=== PATIENT | female | born 1995 | race Caucasian/White ===

== ENCOUNTER 2018-07-22 02:18 | Inpatient (IN) ==
[2018-07-22] MEDS ORDERED: LORazepam 2 MG/4 ML VIAL IV PRN (02:30)
[2018-07-22] MEDS ORDERED: SODIUM CHLORIDE 0.9% 1000ML 1,000 ML IV SCH (02:30)
[2018-07-22 02:50] LABS: Basophils # (auto) 0.02 K/uL (0-0.2); Basophils % (auto) 0.2 %; Eosinophils # (auto) 0.06 K/uL (0-0.5); Eosinophils % (auto) 0.5 %; Hematocrit (blood only) 38.5 % (37-47); Hemoglobin 13.3 g/dL (12.0-16.0); Immature Granulocytes # (auto) 0.03 K/uL (0.00-0.02); Immature Granulocytes % (auto) 0.2 %; Lymphocytes # (auto) 1.43 K/uL (1.2-3.4); Lymphocytes % (auto) 11.6 %; Mean Corpuscular Hgb Conc 34.5 g/dL (32-36); Mean Corpuscular Volume 90.6 fL (80-100); Mean Platelet Volume 10.3 fL (7.4-10.4); Monocytes # (auto) 0.47 K/uL (0.11-0.59); Monocytes % (auto) 3.8 %; Neutrophils # (auto) 10.36 K/uL (1.4-6.5); Neutrophils % (auto) 83.7 %; Platelet Count 207 K/uL (130-400); RDW Standard Deviation 39.5 fL (36.4-46.3); Red Blood Count 4.25 M/uL (4.2-5.4); White Blood Count 12.37 K/uL (4.8-10.8)
[2018-07-22 03:08] LABS: Albumin Level 3.7 gm/dl (3.4-5.0); BUN Creatinine Ratio 10.8 (10-20); Calcium 8.3 mg/dl (8.5-10.1); Creatinine Clr Calc Pharmacy 76.8 ml/min; Est GFR (African American) 98.5; Potassium 3.5 mmol/L (3.5-5.1)
[2018-07-22 03:10] LABS: Albumin Globulin Ratio 1.1 (0.9-2); Bilirubin,Total 1.4 mg/dl (0.2-1); Globulin 3.5 gm/dl (2.5-4.0); Total Protein 7.2 gm/dl (6.4-8.2)
[2018-07-22 03:45] LABS: Lyme Ab IgG w/WB Rflx Negative (Negative); Lyme Ab IgM w/WB Rflx Negative (Negative)
--- NOTE | 2018-07-22 04:20 | History & Physical Report ---
Date of Service July 22, 2018 Assessment & Plan (1) New onset seizure: 2 episodes in the last 24 hours hx migraine, episode frequency/intensity at baseline as per patient family Medical Seizure precautions Keppra for prophylaxis Ativan as needed EEG, MRI brain, Neurology consult RE new onset seizures DVT prophylaxis. SCDs Full code Patient's boyfriend requesting updates from providers. Mr. Ilia Victoria, contact #[phone]. History of Present Illness Chief Complaint: Recurrent seizures Primary Care Provider: Angie Lane MD History obtained from patient, family, and records. Limited history from patient secondary to obtunded state. Medical history significant for migraine. Yesterday, patient's boyfriend roused from sleep with patient noted to have seizure-like activity described as generalized arm shaking with gurgling noises. Episode lasted about a minute as per patient boyfriend. No incontinence. No previous episodes. Patient somewhat confused for about 20 minutes after episode. Usual monthly frequency of migraine attacks as per patient boyfriend. No unusual stress except with ongoing moved to new home. No sleep deprivation as per patient's boyfriend. Patient seen at the ER yesterday. ER workup unremarkable. Patient sent home with outpatient Neurology referral. Last night, patient noted to have recurrence of episode again during sleep as per boyfriend. Tongue biting noted. EMS alerted. Patient received IV Keppra and Ativan at the ER. Patient currently obtunded. Medical History as above Surgical History : Knee surgery Family History : Breast cancer, colon cancer Personal/Social history : Non-smoker, occasional EtOH intake, [employer] employee Allergies Allergy/AdvReac Type Severity Reaction Status Date / Time No Known Allergies Allergy Verified 07/22/18 02:35 Home Medications Home Medications Medication Instructions Recorded Confirmed Type copper [ParaGard T 380A] 1 mm2 INTRAUTERINE CONTINOUS 07/21/18 07/22/18 History Past Med/Surg History Medical History No chronic diseases present Social History Preferred Language: Martiniquais Communication Ability: sedated Communication Ability Comment: iv ativan given in ed Package Checker Required: No Beliefs That Will Affect Care: None Current Living Situation: Significant Other Other Information That Helps Us Care for You: No Feels Safe at Home: Yes Smoking Status: Never smoker Hx Alcohol Use: No Hx Substance Use: Yes Review of Systems Could not be reliably obtained Physical Exam Vital Signs (Past 24 Hours): Last Vital Signs Temp 36.8 C 07/22/18 02:18 Pulse 92 H 07/22/18 04:01 Resp 22 07/22/18 04:01 BP 104/66 07/22/18 04:01 Pulse Ox 97 07/22/18 04:01 Physical Exam: GENERAL: Comfortable, obtunded, no respiratory distress SKIN: Normal color, warm HEENT: [place] palpebral conjunctivae, no ptosis, moist buccal mucosa, tongue contusion NECK : Supple, no tenderness CHEST : Decreased breath sounds , no tenderness HEART : RRR, no obvious murmurs ABDOMEN: Some distention, nontender EXTREMITIES : No LE swelling/tenderness, no other conspicuous deformities noted NEUROLOGIC : Obtunded, mid dilated pupils , no facial asymmetry, no other gross focality Results & Data Laboratory Results Laboratory Results WBC 12.37 K/uL (4.8-10.8) H 07/22/18 02:38 RBC 4.25 M/uL (4.2-5.4) 07/22/18 02:38 Hgb 13.3 g/dL (12.0-16.0) 07/22/18 02:38 Hct 38.5 % (37-47) 07/22/18 02:38 MCV 90.6 fL (80-100) 07/22/18 02:38 MCH 31.3 pg (25-34) 07/22/18 02:38 MCHC 34.5 g/dL (32-36) 07/22/18 02:38 RDW Std Deviation 39.5 fL (36.4-46.3) 07/22/18 02:38 RDW Coeff of Jorge L 12.0 % (11.5-14.5) 07/22/18 02:38 Plt Count 207 K/uL (130-400) 07/22/18 02:38 MPV 10.3 fL (7.4-10.4) 07/22/18 02:38 Immature Gran % (Auto) 0.2 % 07/22/18 02:38 Neut % (Auto) 83.7 % 07/22/18 02:38 Lymph % (Auto) 11.6 % 07/22/18 02:38 [place] % (Auto) 3.8 % 07/22/18 02:38 Eos % (Auto) 0.5 % 07/22/18 02:38 Baso % (Auto) 0.2 % 07/22/18 02:38 Immature Gran # (Auto) 0.03 K/uL (0.00-0.02) H 07/22/18 02:38 Neut # (Auto) 10.36 K/uL (1.4-6.5) H 07/22/18 02:38 Lymph # (Auto) 1.43 K/uL (1.2-3.4) 07/22/18 02:38 [place] # (Auto) 0.47 K/uL (0.11-0.59) 07/22/18 02:38 Eos # (Auto) 0.06 K/uL (0-0.5) 07/22/18 02:38 Baso # (Auto) 0.02 K/uL (0-0.2) 07/22/18 02:38 Sodium 139 mmol/L (136-145) 07/22/18 02:38 Potassium 3.5 mmol/L (3.5-5.1) 07/22/18 02:38 Chloride 107 mmol/L (98-107) 07/22/18 02:38 Carbon Dioxide 24 mmol/L (21-32) 07/22/18 02:38 Anion Gap 8.0 (3-11) 07/22/18 02:38 BUN 10 mg/dl (7-18) 07/22/18 02:38 Creatinine 0.95 mg/dl (0.6-1.2) 07/22/18 02:38 Est Cr Clr Drug Dosing 76.8 ml/min 07/22/18 02:38 Est GFR ( Amer) 98.5 07/22/18 02:38 Est GFR (Non-Af Amer) 85.0 07/22/18 02:38 BUN/Creatinine Ratio 10.8 (10-20) 07/22/18 02:38 Glucose 119 mg/dl (70-99) H 07/22/18 02:38 Calcium 8.3 mg/dl (8.5-10.1) L 07/22/18 02:38 Total Bilirubin 1.4 mg/dl (0.2-1) H 07/22/18 02:38 AST 14 U/L (15-37) L 07/22/18 02:38 ALT 18 U/L (12-78) 07/22/18 02:38 Alkaline Phosphatase 52 U/L (45-117) 07/22/18 02:38 Total Creatine Kinase 236 U/L (26-192) H 07/22/18 02:38 Total Protein 7.2 gm/dl (6.4-8.2) 07/22/18 02:38 Albumin 3.7 gm/dl (3.4-5.0) 07/22/18 02:38 Globulin 3.5 gm/dl (2.5-4.0) 07/22/18 02:38 Albumin/Globulin Ratio 1.1 (0.9-2) 07/22/18 02:38 Procalcitonin < 0.05 ng/ml (0-0.5) 07/22/18 02:38 TSH 3.980 uIu/ml (0.300-4.500) 07/22/18 02:38 Lyme Disease IgG Ab Negative (Negative) 07/22/18 02:38 Lyme Disease IgM Ab Negative (Negative) 07/22/18 02:38
[2018-07-22] MEDS ORDERED: [UNRECOGNIZED DRUG - OTHER] IU SCH (05:41)
[2018-07-22] MEDS ORDERED: CALCIUM GLUCONATE 10% 1,000 MG in SODIUM CHLORIDE 0.9% 50 ML IV STA (05:41)
[2018-07-22] MEDS ORDERED: LORazepam 1 MG/2 ML VIAL IV PRN (05:41)
[2018-07-22] MEDS ORDERED: ACETAMINOPHEN 325 MG TAB PO PRN (05:41)
[2018-07-22] MEDS ORDERED: NSS + 20MEQ KCL 20 MEQ/1,000 ML BAG IV ONE (05:41)
[2018-07-22] MEDS ORDERED: PROCHLORPERAZINE 5 MG in SYRINGE 4 ML IV PRN (05:41)
--- NOTE | 2018-07-22 06:44 | Emergency Department Note ---
History of Present Illness General Chief complaint: Seizure History of Present Illness This is a 22-year-old female presenting to the emergency department for evaluation of a seizure event that occurred less than 30 minutes prior to arrival. She is accompanied by her fianc� who witnessed the event. Evidently t he 2 of them were laying in bed together, sleeping. The fianc� was awoken when the patient began shaking uncontrollably. The fianc� attempted to awaken the patient, who was not responsive. The patient eventually stopped shaking after 911 arrived and evidently had a postictal period of 10-15 minutes. The patient did bite her tongue but did not draw blood. She is not having pain of her shoulders, arms, or legs. She did not defecate or urinate herself. The patient was seen less than 24 hours ago in this department for a new onset seizure. She did have blood work and CT scan at that time that was essentially normal. The patient drug of abuse screen was positive for marijuana, and she states that she did not smoke marijuana after being discharged yesterday. The patient does not recall the events of the seizure tonight, and does report being very tired. She has not had fever or chills. She denies chance of . She rates her current discomfort a 3/10. Home Medications Home Medications Medication Instructions Recorded Confirmed Type copper [ParaGard T 380A] 1 mm2 INTRAUTERINE CONTINOUS 07/21/18 07/22/18 History Allergies Allergy/AdvReac Type Severity Reaction Status Date / Time No Known Allergies Allergy Verified 07/22/18 02:35 Past Med/Surg History Medical History No chronic diseases present Social History Preferred Language: Zambian Communication Ability: sedated Communication Ability Comment: iv ativan given in ed Instructor Knitting Required: No Beliefs That Will Affect Care: None Current Living Situation: Significant Other Other Information That Helps Us Care for You: No Feels Safe at Home: Yes Smoking Status: Never smoker Hx Alcohol Use: No Hx Substance Use: Yes Review of Systems A total of 10 systems reviewed and were otherwise negative Physical Exam Vital Signs Vital Signs - 24 hr 07/22/18 02:18 07/22/18 02:21 07/22/18 03:01 Temperature 36.8 C Temperature Source Oral Sepsis Recent Fever Within 48 Hours No Sepsis New/Unexplained Change in Mental Status No Sepsis Action Taken by Nursing No Action Required Pulse Rate 84 89 92 H Pulse Rate [Brachial] Pulse Rate from SpO2 Sensor 83 94 H Respiratory Rate 20 15 19 Respiratory Effort / Characteristics Non-Labored Spontaneous Respiratory Depth Normal Respiratory Pattern Regular Blood Pressure 116/60 116/60 112/78 Blood Pressure [Left Arm] Blood Pressure Mean 78 78 89 Blood Pressure Mean [Left Arm] Blood Pressure Position Semi-fowlers Pulse Oximetry 93 94 99 Oxygen Delivery Method Room Air 07/22/18 04:01 07/22/18 04:31 07/22/18 05:01 Temperature Temperature Source Sepsis Recent Fever Within 48 Hours Sepsis New/Unexplained Change in Mental Status Sepsis Action Taken by Nursing Pulse Rate 92 H 84 85 Pulse Rate [Brachial] Pulse Rate from SpO2 Sensor 92 H 82 85 Respiratory Rate 22 23 21 Respiratory Effort / Characteristics Respiratory Depth Respiratory Pattern Blood Pressure 104/66 106/64 102/57 L Blood Pressure [Left Arm] Blood Pressure Mean 78 78 72 Blood Pressure Mean [Left Arm] Blood Pressure Position Pulse Oximetry 97 98 96 Oxygen Delivery Method Room Air 07/22/18 05:06 07/22/18 05:45 Temperature 36.9 C Temperature Source Oral Sepsis Recent Fever Within 48 Hours Sepsis New/Unexplained Change in Mental Status Sepsis Action Taken by Nursing Pulse Rate 85 Pulse Rate [Brachial] 96 H Pulse Rate from SpO2 Sensor Respiratory Rate 21 20 Respiratory Effort / Characteristics Respiratory Depth Respiratory Pattern Blood Pressure 102/57 L Blood Pressure [Left Arm] 101/64 Blood Pressure Mean Blood Pressure Mean [Left Arm] 76 Blood Pressure Position Pulse Oximetry 96 98 Oxygen Delivery Method Room Air Room Air VITALS: Vitals are noted on the nurse's note and reviewed by myself. Vital s igns stable. GENERAL: Well-developed, well-nourished, white female, who is in no acute distress and resting comfortably. Patient is cooperative with the examination. HEAD: Normocephalic atraumatic. EARS: External ear normal. External auditory canals clear, tympanic membranes pearly [place] without erythema or effusion bilaterally. EYES: Pupils equal round and reactive to light and accommodation. Conjunctivae without injection, sclerae without icterus. Extraocular movements intact. NOSE: Patent, turbinates without inflammation or discharge. MOUTH: Mucous membranes moist. Tonsils are not enlarged. Pharynx without erythema, blood, or exudate. Uvula midline. Airway patent. Bruising noted to the lateral aspects of the tongue without maceration or laceration. NECK: Supple without nuchal rigidity. No lymphadenopathy. No thyromegaly. Cervical spine is nontender. HEART: Regular rate and rhythm without murmurs gallops or rubs. LUNGS: Clear to auscultation bilaterally without wheezes, rales or rhonchi. No retractions or accessory muscle use. ABDOMEN: Positive normal bowel sounds x 4. Soft, nontender, without masses or organomegaly. No guarding or rebound tenderness. MUSCULOSKELETAL: No muscle atrophy, erythema, or edema noted. Full range of motion in all extremities. NEURO: Patient was alert and oriented to person place and time. CN II through XII grossly intact. No focal neurological deficits. GCS 15. SKIN: The skin was without rashes, erythema, edema, or bruising. Capillary refill less than 2 seconds. Course Administered Medications Discontinued Medications Lorazepam (Ativan) 2 mg in 4 mls @ 4 mls/min IV UD PRN PRN Reason: seizure Stop: 08/21/18 02:29 Last Admin: 07/22/18 02:46 Dose: 4 mls/min Documented by: [id number] Levetiracetam 1,000 mg/ (Dextrose) 110 mls @ 440 mls/hr IV NOW STA Stop: 07/22/18 02:47 Last Infusion: 07/22/18 03:11 Dose: 0 mls/hr Documented by: [id number] Admin: 07/22/18 02:46 Dose: 440 mls/hr Documented by: [id number] Sodium Chloride (Nss 1000ml) 1,000 mls @ 250 mls/hr IV .Q4H JEREMIAH Stop: 07/22/18 06:29 Last Infusion: 07/22/18 05:50 Dose: 0 mls/hr Documented by: [id number] Admin: 07/22/18 02:52 Dose: 250 mls/hr Documented by: [id number] Medical Decision Making Differential Diagnosis Differential includes Seizure, substance abuse, , intracranial bleed, acute coronary syndrome, myocardial infarction, CVA, TIA, anemia, infection, pneumonia, UTI, pyelonephritis, poor nutrition, dehydration, electrolyte dist urbance,hypoglycemia. Laboratory Data Result diagrams: 07/22/18 02:38 02/28/19 02:38 Lab Results 07/22/18 07/22/18 07/22/18 Range/Units 02:38 02:38 02:38 WBC 12.37 H (4.8-10.8) K/uL RBC 4.25 (4.2-5.4) M/uL Hgb 13.3 (12.0-16.0) g/dL Hct 38.5 (37-47) % MCV 90.6 (80-100) fL MCH 31.3 (25-34) pg MCHC 34.5 (32-36) g/dL RDW Std Deviation 39.5 (36.4-46.3) fL RDW Coeff of Jorge L 12.0 (11.5-14.5) % Plt Count 207 (130-400) K/uL MPV 10.3 (7.4-10.4) fL Immature Gran % (Auto) 0.2 % Neut % (Auto) 83.7 % Lymph % (Auto) 11.6 % [place] % (Auto) 3.8 % Eos % (Auto) 0.5 % Baso % (Auto) 0.2 % Immature Gran # (Auto) 0.03 H (0.00-0.02) K/uL Neut # (Auto) 10.36 H (1.4-6.5) K/uL Lymph # (Auto) 1.43 (1.2-3.4) K/uL [place] # (Auto) 0.47 (0.11-0.59) K/uL Eos # (Auto) 0.06 (0-0.5) K/uL Baso # (Auto) 0.02 (0-0.2) K/uL Sodium 139 (136-145) mmol/L Potassium 3.5 (3.5-5.1) mmol/L Chloride 107 (98-107) mmol/L Carbon Dioxide 24 (21-32) mmol/L Anion Gap 8.0 (3-11) BUN 10 (7-18) mg/dl Creatinine 0.95 (0.6-1.2) mg/dl Est Cr Clr Drug Dosing 76.8 ml/min Est GFR ( Amer) 98.5 Est GFR (Non-Af Amer) 85.0 BUN/Creatinine Ratio 10.8 (10-20) Glucose 119 H (70-99) mg/dl Calcium 8.3 L (8.5-10.1) mg/dl Total Bilirubin 1.4 H (0.2-1) mg/dl AST 14 L (15-37) U/L ALT 18 (12-78) U/L Alkaline Phosphatase 52 (45-117) U/L Total Creatine Kinase 236 H (26-192) U/L Total Protein 7.2 (6.4-8.2) gm/dl Albumin 3.7 (3.4-5.0) gm/dl Globulin 3.5 (2.5-4.0) gm/dl Albumin/Globulin Ratio 1.1 (0.9-2) Procalcitonin (0-0.5) ng/ml TSH 3.980 (0.300-4.500) uIu/ml Lyme Disease IgG Ab Negative (Negative) Lyme Disease IgM Ab Negative (Negative) 07/22/18 Range/Units 02:38 WBC (4.8-10.8) K/uL RBC (4.2-5.4) M/uL Hgb (12.0-16.0) g/dL Hct (37-47) % MCV (80-100) fL MCH (25-34) pg MCHC (32-36) g/dL RDW Std Deviation (36.4-46.3) fL RDW Coeff of Jorge L (11.5-14.5) % Plt Count (130-400) K/uL MPV (7.4-10.4) fL Immature Gran % (Auto) % Neut % (Auto) % Lymph % (Auto) % [place] % (Auto) % Eos % (Auto) % Baso % (Auto) % Immature Gran # (Auto) (0.00-0.02) K/uL Neut # (Auto) (1.4-6.5) K/uL Lymph # (Auto) (1.2-3.4) K/uL [place] # (Auto) (0.11-0.59) K/uL Eos # (Auto) (0-0.5) K/uL Baso # (Auto) (0-0.2) K/uL Sodium (136-145) mmol/L Potassium (3.5-5.1) mmol/L Chloride (98-107) mmol/L Carbon Dioxide (21-32) mmol/L Anion Gap (3-11) BUN (7-18) mg/dl Creatinine (0.6-1.2) mg/dl Est Cr Clr Drug Dosing ml/min Est GFR ( Amer) Est GFR (Non-Af Amer) BUN/Creatinine Ratio (10-20) Glucose (70-99) mg/dl Calcium (8.5-10.1) mg/dl Total Bilirubin (0.2-1) mg/dl AST (15-37) U/L ALT (12-78) U/L Alkaline Phosphatase (45-117) U/L Total Creatine Kinase (26-192) U/L Total Protein (6.4-8.2) gm/dl Albumin (3.4-5.0) gm/dl Globulin (2.5-4.0) gm/dl Albumin/Globulin Ratio (0.9-2) Procalcitonin < 0.05 (0-0.5) ng/ml TSH (0.300-4.500) uIu/ml Lyme Disease IgG Ab (Negative) Lyme Disease IgM Ab (Negative) MDM Narrative Physical exam and history were performed. Nursing notes, EMR, and Medication List were personally reviewed. Patient appears to have had a second seizure in the past 24 hours. She does not have a history of seizures prior to this. The patient was cared for under seiz ure precautions. IV access was established and labs were obtained. I discussed the case with my attending physician, Dr. Guan, who remained involved in care and decision making. We did elect to start the patient on a dose of Keppra here in the department. The patient's blood work is as above and was reviewed. She does have a slightly elevated white blood cell count of 12,000. She does not have a significant anemia, bandemia, or significant electrolyte imbalance. Lyme is negative. The patient was reevaluated multiple times throughout the course of her stay. She did not have any recurrent seizure-like activity here in the department due to the patient's multiple seizures today without previous history of seizures the case was discussed with the on-call [facility] hospitalist. [facility] see the [facility] dict[facility] for further patient course, plan, and disposition. The chart was completed utilizing [email or web address] Voice Recognition Software. Grammatical errors, random word insertions, pronoun errors, and incomplete sentences are an occasional consequence of this system due to software limitations, ambient noise, and hardware issues. Any formal questions or concerns about the content, text, or information contained within the body of this dictation should be directly addressed to the provider for clarification. . Impression & Plan New onset seizure Discharge Plan Visit Data *Final* Discharge Date/Time: 07/22/18 05:06 Chief Complaint: Seizure ED Provider: Isidro Guan ED Midlevel Provider: Fazal Zhong Discharge Problem: New onset seizure Patient Disposition: Admitted As Inpatient Discharge Instructions Interventions: ED Discharge Assessment Last Done: 07/22/18 05:06
[2018-07-22] MEDS ORDERED: GADOBUTROL 65ML VIAL IV PRN (06:57)
--- NOTE | 2018-07-22 07:17 | Magnetic Resonance Report ---
MRI OF THE BRAIN WITHOUT AND WITH IV CONTRAST CLINICAL HISTORY: seizures HISTORY OF HEAD TRAUMA. COMPARISON STUDY: Noncontrast head CT dated September 18, 2018 TECHNIQUE: MRI of the brain was performed from the vertex to the skull base utilizing various T1 and T2 weighted sequences. Following the IV administration of 5.5 mL of Gadavist contrast, additional enh anced images were obtained. FINDINGS: Sagittal T1, axial diffusion, proton density and T2 weighted axial, coronal FLAIR, and pre and post a xial T1-weighted images were acquired. These were supplemented with post gadolinium coronal T1 weight ed images. No intra or extra-axial mass lesions are visualized. Axial diffusion-weighted images reveal no evidence of acute or subacute infarction. There is no evidence of ventricular dilatation. Proton density T2-weighted and FLAIR images reveal no significant brachial signal abnormalities. There are no abnormal flow voids. The hippocampal formations appear symmetric. There is no evidence of pathologic enhancement. IMPRESSION: Normal MRI of the brain. Electronically signed by: Jose Angel Keller M.D. 07/22/2018 7:15 AM
[2018-07-22 07:25] LABS: Estimated Average Glucose 103 mg/dl; Hemoglobin A1C 5.2 % (4.5-5.6)
--- NOTE | 2018-07-22 09:24 | Hospitalist Progress Note ---
Date of Service July 22, 2018 Assessment & Plan (1) New onset seizure: Had 2 episodes of seizure within 24hrs that occurred during sleep CT and MRI of head showed no acute abnormality Received IV Keppra in the ER Starting on Keppra 500mg BID Neuro consult pending EEG report pending Continue seizure precaution No driving until seizure free for at least 6 months No high level activity or around movement machine (2) Marijuana use: UDS positive for Marijuana Counseling pt on marijuana cessation DVT px on SCD CODE STATUS FULL CODE Disposition Will discharge once stable from neurology standpoint Subjective Pt was seen and examined Lying in bed comfortable resting with fiancee at bedside Physical Exam Vital Signs (Past 24 Hours): Last Vital Signs Temp 36.9 C 07/22/18 05:45 Pulse 96 H 07/22/18 05:45 Resp 20 07/22/18 05:45 BP 101/64 07/22/18 05:45 Pulse Ox 98 07/22/18 08:00 Physical Exam: General- No acute distress Head- atraumatic Eyes- PERRL, EOMI, ENT- oropharynx clear Neck- supple, no JVD Lungs- clear to auscultation Heart- regular rhythm; no murmur Abdomen- normal bowel sounds, soft, nontender Extremities- no calf tenderness Neuro- alert, oriented x 3; PERRL, EOMI; no facial palsy; no dysarthria Skin- warm & dry
--- NOTE | 2018-07-22 10:33 | Neurology Consultation ---
Date of Consultation July 22, 2018 Assessment & Plan (1) New onset seizure: 22-year-old female who presents with new onset seizure. While she did have 2 events that sound consistent with epileptic seizures, technically since they occurred with in 24 hours, can consider this single first event. No provoking factors identified. Recommendations: Agree with initiation of Keppra for now since she has had 2 events within 24 hours. Discussed common side effects and to watch out for mood disturbance. Discussed the plan will be to have her return to the neurology clinic in 1 month for reevaluation. If no additional events concerning for seizures, then we coul d consider tapering her off of Keppra and repeating a sleep deprived EEG or 1 hour extended EEG to make sure that there is no signs of underlying epilepsy. If she has any additional events concerning for seizures, she will need to be on medication indefinitely. Recommend observing the patient for 24 hours to make sure that she does not have any additional seizures before sending her home. Patient and boyfriend have a number of the neurology clinic, instructed them to call if there is any concerns or questions. Instructed the boyfriend that if she has any additional seizures at home, that if they were similar to the previous ones they do not necessarily need to go to the emergency room every time and can call the clinic for instructions. Discussed reasons to return to the emergency room would be any injuries, multiple seizures within the same day, or not returning to her baseline within 30 minutes. Discussed safety precautions. No driving for 6 months since last seizure. No bathing or swimming alone. Avoid extreme heights that could cause injury or if there was a fall. If she has additional seizures, instructed the boyfriend to turn around her side to avoid aspiration. Instructed him not to put anything in her mouth. Follow-up in neurology clinic in 1 month. Thank you for allowing me to participate in this patient's care. If there is any questions or concerns, feel free to call/page me. History of Present Illness Reason for Consultation: New onset seizures Attending Physician: Nadya Lino MD History of Present Illness This is a 22-year-old female who presents for the above evaluation. Patient denies any previous history of seizures or any events concerning for possible seizures. Patient does not remember the events. History is given by her boyfriend who was present for both events. Both events occurred out of sleep. Reports that he would be woken up by her shaking. Appeared to be generalized shaking. With the first event she may have been turning her head to the left. Did not note any eye deviation. Reports eyes were fluttering open and closed. She may have mildly bit her tongue with the second event but not the first event. No urinary incontinence. Would be confused for approximately 20 minutes afterwards. No changes with medications. She does smoke regular marijuana, not synthetic, and there is been no changes with this use. No new stressors or life events. She did recently hit her head 2 weeks ago but there was no loss of consciousness and no postconcussion symptoms. Denies any illness symptoms. Patient was initially evaluated in the emergency room yesterday morning and it was advised that since she was back to her normal baseline that she can get an outpatient workup. Patient returned the next night due to repeat seizure even ts. First seizure occurred at 4 AM, and the second 1 occurred at 1:15 AM (meaning technically 2 events within the same 24 hours). No provoking factors identified. No sleep deprivation. MRI of the brain report and images were reviewed by myself and normal. I reviewed the EEG that was done this morning and it was normal. That being said the patient had received a dose of IV Keppra and Ativan in the emergency room. Labs were reviewed. WBC slightly elevated at 12, CK 236, positive THC, but the rest of her tox screen was negative. Negative Lyme Past medical history unremarkable Family history of mother who had a seizure during chemotherapy but otherwise no seizure or epilepsy was in the family Social history: Patient is employed. Normally independent her activities of daily living. Does smoke marijuana a few times per week Allergies Allergy/AdvReac Type Severity Reaction Status Date / Time No Known Allergies Allergy Verified 07/22/18 02:35 Home Medications Home Medications Medication Instructions Recorded Confirmed Type copper [ParaGard T 380A] 1 mm2 INTRAUTERINE CONTINOUS 07/21/18 07/22/18 History Patient History Medical History No chronic diseases present Social History Preferred Language: Sami Communication Ability: sedated Communication Ability Comment: iv ativan given in ed [employer] Required: No Beliefs That Will Affect Care: None Current Living Situation: Significant Other Other Information That Helps Us Care for You: No Feels Safe at Home: Yes Smoking Status: Never smoker Hx Alcohol Use: No Hx Substance Use: Yes Review of Systems Patient is groggy and tired this morning secondary to receiving medications in the emergency room and lack of sleep the last 2 nights. Physical Exam Vital Signs (Past 24 Hours): Last Vital Signs Temp 36.9 C 07/22/18 05:45 Pulse 96 H 07/22/18 05:45 Resp 20 07/22/18 05:45 BP 101/64 07/22/18 05:45 Pulse Ox 98 07/22/18 08:00 Physical Exam: Gen.: Patient is drowsy but oriented in no acute distress lying in bed Heart: Regular rate and rhythm Extremities: No gross deformities or rashes noted Neurological examination: Mental status: Patient is drowsy, but oriented to person place and time. Able to give her own history. Good fund of knowledge. Attention concentration normal for the situation. Remote and recent memory intact Speech is fluent without any dysarthria or aphasia noted Cranial nerves: Visual crawford intact to confrontation. Funduscopic examination was unremarkable with no signs of papilledema. Pupils equally round and reactive to light. Extraocular muscles intact without nystagmus. No facial asymmetry noted. Facial sensation intact. Tongue midline. Good palatal elevation. Good shoulder shrug bilaterally. Hearing grossly intact voice. Strength: 5/5 both proximal and distal in all extremities .Tone is normal. Sensation: Grossly intact to light touch in all extremities Deep tendon reflexes: +2 in bilateral biceps and patellar. Toes are downgoing to plantar stimulation bilaterally Coordination: Patient has good finger to nose without dysmetria. Station within the bed is normal.
[2018-07-22] MEDS ORDERED: INFLUENZA VIRUS QUAD VACCINE 0.5 ML SYR IM ONE (12:00)
[2018-07-22] MEDS ORDERED: INFLUENZA ADMINISTRATION CHARGE ONE (12:00)
--- NOTE | 2018-07-22 12:04 | Procedure Note ---
EEG Procedure Note Date of Service July 22, 2018 Start / End Times Start Time: 8:09 AM End Time: 8:29 AM Referring Physician [place] History This is a 22-year old female who presents with 2 new onset seizures within the last 24 hours. EEG for further evaluation of possible seizure etiology Patient did receive an IV dose of Keppra and Ativan in the ER earlier this morning. Home Medication List Home Medications Medication Instructions Recorded Confirmed Type copper [ParaGard T 380A] 1 mm2 INTRAUTERINE CONTINOUS 07/21/18 07/22/18 History Inpatient Medication List Gadobutrol (Gadavist 65ml) 5.5 ml IV ONCE PRN PRN Reason: Interaction Checking Stop: 07/26/18 06:56 Last Admin: 07/22/18 06:41 Dose: 5.5 ml Documented by: [id number] Potassium Chloride/Sodium Chloride (Normal Saline W/20 Meq Kcl) 20 meq in 1,000 mls @ 80 mls/hr IV .[id number] ONE Stop: 07/22/18 18:10 Last Admin: 07/22/18 07:23 Dose: 80 mls/hr Documented by: [id number] Discontinued Medications Lorazepam (Ativan) 2 mg in 4 mls @ 4 mls/min IV UD PRN PRN Reason: seizure Stop: 08/21/18 02:29 Last Admin: 07/22/18 02:46 Dose: 4 mls/min Documented by: [id number] Levetiracetam 1,000 mg/ (Dextrose) 110 mls @ 440 mls/hr IV NOW STA Stop: 07/22/18 02:47 Last Infusion: 07/22/18 03:11 Dose: 0 mls/hr Documented by: [id number] Admin: 07/22/18 02:46 Dose: 440 mls/hr Documented by: [id number] Sodium Chloride (Nss 1000ml) 1,000 mls @ 250 mls/hr IV .Q4H JEREMIAH Stop: 07/22/18 06:29 Last Infusion: 07/22/18 05:50 Dose: 0 mls/hr Documented by: [id number] Admin: 07/22/18 02:52 Dose: 250 mls/hr Documented by: [id number] Calcium Gluconate 1,000 mg/ (Sodium Chloride) 60 mls @ 240 mls/hr IV NOW STA Stop: 07/22/18 05:55 Last Infusion: 07/22/18 07:41 Dose: 0 mls/hr Documented by: [id number] Admin: 07/22/18 07:22 Dose: 240 mls/hr Documented by: [id number] Description This is a 21 electrode EEG with a single channel dedicated to limited EKG. The electrodes were placed in accordance with the International 10-20 system. At the start of the recording the patient was in an awake state. Background was well organized and composed of symmetric mixed alpha and beta frequencies. There was a symmetric well-formed moderate amplitude 11-12 Hz posterior dominant rhythm that was reactive to eye opening and closure. Hyperventilation was not done. Intermittent photic stimulation at various frequencies produced no abnormalities. Sleep was indicated by symmetric sleep spindles. Interpretation This is a normal awake and asleep routine EEG. There was no electrographic seizures or epileptiform discharges. Clinical Correlation A normal EEG does not rule out epilepsy if there is a strong clinical suspicion.
[2018-07-22 12:13] LABS: Appearance Urine Clear (Clear); Bilirubin Urine Negative (Negative); Blood Urine Negative (Negative); Color Urine Yellow; Glucose Urine UA Negative (Negative); Ketones Urine 2+ (Negative); Leukocyte Esterase Urine Negative (Negative); Nitrite Urine Negative (Negative); Protein Urine Negative (Negative); Specific Gravity Urine 1.021 (1.000-1.030); Urobilinogen Urine Negative (Negative); pH Urine 6.5 (4.5-7.5)
[2018-07-22 12:52] LABS: Amphetamines+Metham, Urine Neg (Neg); Barbiturates, Urine Neg (Neg); Benzodiazepine, Urine Neg (Neg); Cocaine, Urine Neg (Neg); MDMA (Ecstacy), Urine Neg (Neg); Methadone, Urine Neg (Neg); Opiate, Urine Neg (Neg); Phencyclidine, Urine Neg (Neg)
[2018-07-22] MEDS: levETIRAcetam 500 MG TAB PO SCH (20:33)
[2018-07-23 07:17] LABS: BUN Creatinine Ratio 8.7 (10-20); Calcium 8.5 mg/dl (8.5-10.1); Creatinine Clr Calc Pharmacy 90.1 ml/min; Est GFR (African American) 119.5; Est GFR (Non-African American) 103.1; Potassium 3.6 mmol/L (3.5-5.1)
[2018-07-23] MEDS: levETIRAcetam 500 MG TAB PO SCH (08:01)
--- NOTE | 2018-07-23 09:43 | Neurology Progress Note ---
Date of Service July 23, 2018 Assessment & Plan (1) New onset seizure: 22-year-old female who presents with new onset seizure. While she did have 2 events that sound consistent with epileptic seizures, technically since they occurred with in 24 hours, can consider this single first event. No provoking factors identified. Recommendations: Continue Keppra 500 mg twice a day until follow-up in neurology clinic in 1 month No additional neurological recommendations compared to previous consultation note Thank you for allowing me to participate in this patient's care. If there is any questions or concerns, feel free to call/page me. Subjective No seizures since admission. No reported medication side effects. Physical Exam Vital Signs (Past 24 Hours): Last Vital Signs Temp 37.1 C 07/23/18 07:58 Pulse 83 07/23/18 07:58 Resp 16 07/23/18 07:58 BP 108/66 07/23/18 07:58 Pulse Ox 95 07/23/18 07:58 Physical Exam: Patient is sitting up in bed in no acute distress. Cognition and speech appear to be normal No facial asymmetry. Hearing intact Moving all extremities equally and antigravity
--- NOTE | 2018-07-23 10:18 | Hospitalist Progress Note ---
Date of Service July 23, 2018 Assessment & Plan (1) New onset seizure: Had 2 episodes of seizure within 24hrs that occurred during sleep CT and MRI of head showed no acute abnormality Received IV Keppra in the ER Neurology on board Recommended to continue Keppra 500 mg twice a day until follow-up in neurology clinic in 1 month EEG showed no electrographic seizures or epileptiform discharges. Continue seizure precaution No driving until seizure free for at least 6 months No high level activity or around movement machine No bathing or swimming alone. Avoid extreme heights that could cause injury or if there was a fall. If she has additional seizures, instructed the boyfriend to turn around her side to avoid aspiration and not to put anything in her mouth. (2) Marijuana use: UDS positive for Marijuana Counseling pt on marijuana cessation DVT px on SCD CODE STATUS FULL CODE Disposition Will discharge once stable from neurology standpoint Subjective Pt was seen and examined Lying in bed with no distress with boyfriend at bedside Pt said that she feels fine No seizure activity noted last night Denies any chest pain, palpitation and SOB Physical Exam Vital Signs (Past 24 Hours): Last Vital Signs Temp 37.1 C 07/23/18 07:58 Pulse 83 07/23/18 07:58 Resp 16 07/23/18 07:58 BP 108/66 07/23/18 07:58 Pulse Ox 95 07/23/18 07:58 Physical Exam: General- No acute distress Head- atraumatic Eyes- PERRL, EOMI, ENT- oropharynx clear Neck- supple, no JVD Lungs- clear to auscultation Heart- regular rhythm; no murmur Abdomen- normal bowel sounds, soft, nontender Extremities- no calf tenderness Neuro- alert, oriented x 3; PERRL, EOMI; no facial palsy; no dysarthria Skin- warm & dry
--- NOTE | 2018-07-25 13:11 | Discharge Summary ---
Date of Service August 11, 2018 Admission HPI Per Admitting Provider History obtained from patient, family, and records. Limited history from patient secondary to obtunded state. Medical history significant for migraine. Yesterday, patient's boyfriend roused from sleep with patient noted to have seizure-like activity described as generalized arm shaking with gurgling noises. Episode lasted about a minute as per patient boyfriend. No incontinence. No previous episodes. Patient somewhat confused for about 20 minutes after episode. Usual monthly frequency of migraine attacks as per patient boyfriend. No unusual stress except with ongoing moved to new home. No sleep deprivation as per patient's boyfriend. Patient seen at the ER yesterday. ER workup unremarkable. Patient sent home with outpatient Neurology referral. Last night, patient noted to have recurrence of episode again during sleep as per boyfriend. Tongue biting noted. EMS alerted. Patient received IV Keppra and Ativan at the ER. Patient currently obtunded. Medical History as above Surgical History : Knee surgery Family History : Breast cancer, colon cancer Personal/Social history : Non-smoker, occasional EtOH intake, [employer] employee Discharge Data Consultations 07/22/18 03:03 ED Decision to Admit Stat 07/22/18 05:41 Consult Neurology Routine
--- NOTE | 2018-08-10 15:42 | Discharge Summary ---
Date of Service July 23, 2018 Admission HPI Per Admitting Provider History obtained from patient, family, and records. Limited history from patient secondary to obtunded state. Medical history significant for migraine. Yesterday, patient's boyfriend roused from sleep with patient noted to have seizure-like activity described as generalized arm shaking with gurgling noises. Episode lasted about a minute as per patient boyfriend. No incontinence. No previous episodes. Patient somewhat confused for about 20 minutes after episode. Usual monthly frequency of migraine attacks as per patient boyfriend. No unusual stress except with ongoing moved to new home. No sleep deprivation as per patient's boyfriend. Patient seen at the ER yesterday. ER workup unremarkable. Patient sent home with outpatient Neurology referral. Last night, patient noted to have recurrence of episode again during sleep as per boyfriend. Tongue biting noted. EMS alerted. Patient received IV Keppra and Ativan at the ER. Patient currently obtunded. Medical History as above Surgical History : Knee surgery Family History : Breast cancer, colon cancer Personal/Social history : Non-smoker, occasional EtOH intake, [employer] employee Admission Exam Per Admitting Provider GENERAL: Comfortable, obtunded, no respiratory distress SKIN: Normal color, warm HEENT: [place] palpebral conjunctivae, no ptosis, moist buccal mucosa, tongue contusion NECK : Supple, no tenderness CHEST : Decreased breath sounds , no tenderness HEART : RRR, no obvious murmurs ABDOMEN: Some distention, nontender EXTREMITIES : No LE swelling/tenderness, no other conspicuous deformities noted NEUROLOGIC : Obtunded, mid dilated pupils , no facial asymmetry, no other gross focality Principal Diagnosis Seizures Discharge Exam General- No acute distress Head- atraumatic Eyes- PERRL, EOMI, ENT- oropharynx clear Neck- supple, no JVD Lungs- clear to auscultation Heart- regular rhythm; no murmur Abdomen- normal bowel sounds, soft, nontender Extremities- no calf tenderness Neuro- alert, oriented x 3; PERRL, EOMI; no facial palsy; no dysarthria Skin- warm & dry Discharge Data Allergies Allergy/AdvReac Type Severity Reaction Status Date / Time No Known Allergies Allergy Verified 07/22/18 02:35 Consultations 07/22/18 03:03 ED Decision to Admit Stat 07/22/18 05:41 Consult Neurology Routine Ordered Studies 07/22/18 05:41 MR brain seizure wo/w con Routine MRI OF THE BRAIN WITHOUT AND WITH IV CONTRAST CLINICAL HISTORY: seizures HISTORY OF HEAD TRAUMA. COMPARISON STUDY: Noncontrast head CT dated September 18, 2018 TECHNIQUE: MRI of the brain was performed from the vertex to the skull base utilizing various T1 and T2 weighted sequences. Following the IV administration of 5.5 mL of Gadavist contrast, additional enhanced images were obtained. FINDINGS: Sagittal T1, axial diffusion, proton density and T2 weighted axial, coronal FLAIR, and pre and post axial T1-weighted images were acquired. These were supplemented with post gadolinium coronal T1 weighted images. No intra or extra-axial mass lesions are visualized. Axial diffusion-weighted images reveal no evidence of acute or subacute infarction. There is no evidence of ventricular dilatation. Proton density T2-weighted and FLAIR images reveal no significant brachial signal abnormalities. There are no abnormal flow voids. The hippocampal formations appear symmetric. There is no evidence of pathologic enhancement. IMPRESSION: Normal MRI of the brain. Electronically signed by: Jose Angel Keller M.D. 07/22/2018 7:15 AM Dictated: 07/22/18 0706 Transcribed: 07/22/18 0709 Hospital Course (1) New onset seizure: Had 2 episodes of seizure within 24hrs that occurred during sleep CT and MRI of head showed no acute abnormality Received IV Keppra in the ER Neurology on board Recommended to continue Keppra 500 mg twice a day until follow-up in neurology clinic in 1 month EEG showed no electrographic seizures or epileptiform discharges. Continue seizure precaution No driving until seizure free for at least 6 months No high level activity or around movement machine No bathing or swimming alone. Avoid extreme heights that could cause injury or if there was a fall. If she has additional seizures, instructed the boyfriend to turn around her side to avoid aspiration and not to put anything in her mouth. (2) Marijuana use: UDS positive for Marijuana Counseling pt on marijuana cessation DVT px on SCD CODE STATUS FULL CODE Disposition Will discharge once stable from neurology standpoint Total Time Total Time Spent Total Time Spent (In Minutes): 35 minutes Total Time Includes: Examination of the Patient, Discharge Planning, Medication Reconciliation, Communication With Other Providers and Other Discharge Plan Discharge Items Patient Disposition: Home - Self-Care Reason For Visit: SEIZURES Discharge Diagnosis: Seizures Discharge Goals: Decrease discomfort, Diagnostic testing, Improve disease control and Increase independence Activity: Resume your previous activity Activity Comment: As tolerated Non-emergency contact: Primary Care Provider and Neurologist Call non-emergency contact if: you have any medication questions Follow-up/Referrals: Angie Briggs MD [Primary Care Provider] - Diet: Regular Addtl Provider Instructions: Follow up with your primary care provider Dr. Rodriguez (Dr. Maximo Lane's colleague) on 07/30 @ 1:00PM Follow up with Neurology Dr. Dulce Gilbert, DO in 1 month (Please call to schedule for the appointment) No driving until seizure free for at least 6 months No high level activity or around movement machine No bathing or swimming alone. Avoid extreme heights that could cause injury or if there was a fall. If she has additional seizures, instructed the boyfriend to turn around her side to avoid aspiration and not to put anything in her mouth. Prescriptions: New levetiracetam [Keppra] 500 mg Tablet 500 mg PO BID 30 Days Qty: 60 RF: 0 Continued ParaGard T 380A 380 square mm Intrauterine Device 1 mm2 INTRAUTERINE CONTINOUS RF: 0 Stand-Alone Forms: [facility] Discharge Orders: Discharge Order (Routine); Ordered 07/23/18 Ordered By: Nadya Lino Admission Data Admit Date/Time: 07/22/18 04:23 Attending Provider: Nadya Lino Admit Provider: Shabbir Londono Primary Care Provider: Angie Briggs Other Providers: Dulce Gilbert Service: Medical Other Interventions: Discharge Summary Assessment (RN) Last Done: 07/23/18 11:55 DC Date/Time DO NOT enter until pt leaves facility: 07/23/18 14:20
== END 2018-07-23 14:20 | disposition home or self-care (01) | DRG 101 ==
LOC: ED 02:18 → 2N 04:23
DX: R56.9 Unspecified convulsions